=== PATIENT | female | born 1975 | race Caucasian/White ===

== ENCOUNTER 2025-04-03 21:13 | Emergency (ER) | payer OTHER ==
[2025-04-03] MEDS: valACYclovir 500 MG Tab PO ONE (22:30)
== END 2025-04-03 22:45 | disposition home or self-care (01) ==
LOC: JP.ED 21:13
DX: B02.9 Zoster without complications (principal); Z88.8 Allergy status to other drugs, medicaments and biological substances; Z79.899 Other long term (current) drug therapy
CPT/HCPCS: 99282; A9270